=== PATIENT | female | born 1975 | race Caucasian/White ===

== ENCOUNTER 2018-06-14 11:00 | Inpatient (IN) | payer OTHER ==
[2018-06-26 12:32] VITALS: BMI 29.4
--- NOTE | 2018-06-26 20:17 | HP ---
DATE OF ADMISSION: 06/27/2018 REASON FOR ADMISSION: Menorrhagia, dysmenorrhea, fibroids. SCHEDULED PROCEDURE: Total laparoscopic hysterectomy and bilateral salpingectomy. HISTORY OF PRESENT ILLNESS: Ms. Sinclair is a 42-year-old 5, para 4, AB 1 with a long history of known fibroids that have increased in size and her menorrhagia is worse and she desires definitiv e therapy. OB AND UTILITY PLANT OPERATIVE HISTORY: Noted , negative EMB, negative Pap. PAST MEDICAL HISTORY: Anxiety. PAST SURGICAL HISTORY: None. ALLERGIES: Denies. MEDICATION: Provera. SOCIAL HISTORY: Denies tobacco, alcohol, IV drug abuse. FAMILY HISTORY: Noncontributory. REVIEW OF SYSTEMS: Noncontributory. PHYSICAL EXAMINATION: GENERAL: White female. VITAL SIGNS: 5 feet and 10 inches, 205, BMI 29, blood pressure 104/78. HEENT: Within normal limits. LUNGS: Clear to auscultation bilaterally. HEART: Regular rhythm. BREASTS: No masses bilaterally. ABDOMEN: Soft. No jugular rebound or guarding. PELVIC: Vulva without lesions. Vagina without discharge. Cervix parous, uterus anteverted 12-14-we ek size irregular, consistent with fibroids. No adnexal masses noted. EXTREMITIES: Without clubbing, cyanosis or edema. LABORATORY DATA: Pap and EMB was benign, without evidence of hyperplasia or atypia. IMPRESSION: Fibroids, dysmenorrhea, menorrhagia. PLAN: We will proceed with TLH, bilateral salpingectomy. Patient understands the risk and benefits of procedure. We will administer appropriate antibiotic and DVT prophylaxis.
[2018-06-27] MEDS ORDERED: Gabapentin 300 MG CAP ONE (09:10)
[2018-06-27] MEDS ORDERED: CEFAZOLIN/Water 2 GM/20 ML SYRINGE ONE (09:10)
[2018-06-27] MEDS ORDERED: CeleCOXIB 100 MG CAP ONE (09:10)
[2018-06-27] MEDS ORDERED: Famotidine/PF 20 mg/2ml Vial ONE (09:10)
[2018-06-27] MEDS ORDERED: Bupivacaine HCl 0.5%/Epinephrine 1:200,000/PF 30 ml Vial ONE (09:41)
[2018-06-27] MEDS ORDERED: Fentanyl 100 MCG/2 ML VIAL ONE ×3 (09:49→13:16)
[2018-06-27 09:54] LABS: Hemoglobin 11.8 g/dL (12.0-16.0); Mean Corpuscular HGB CONC 32.2 g/dL (32.0-36.0); Mean Corpuscular Hemoglobin 26.6 pg (27.0-31.0); Mean Corpuscular Volume 82.7 fL (78.0-98.0); Mean Platelet Volume 7.4 fL (7.4-10.4); Platelet Count 300 thou/uL (130-400); RBC Distribution Width 12.6 % (11.5-14.5); Red Blood Cell (RBC) Count 4.44 mill/uL (4.20-5.40); White Blood Cell (WBC) Count 6.2 thou/uL (4.8-10.8)
[2018-06-27] MEDS ORDERED: Midazolam HCl 2 mg/2 ml Vial ONE (09:58)
[2018-06-27] MEDS ORDERED: Promethazine HCl 25 MG/ML VIAL IM PRN ×2 (12:19→13:56)
[2018-06-27] MEDS ORDERED: Promethazine HCl 25 MG/ML VIAL SLOW IVP PRN (12:19)
[2018-06-27] MEDS ORDERED: Ondansetron HCl/PF 4 MG/2 ML Vial IVP PRN ×2 (12:19→13:56)
[2018-06-27] MEDS ORDERED: Estradiol 0.1mg/24 Hour Patch (Weekly) TD ONE (12:31)
--- NOTE | 2018-06-27 13:07 | OP ---
DATE OF PROCEDURE: 06/27/2018 PREOPERATIVE DIAGNOSES: Large uterus consistent with leiomyoma uteri with menorrhagia and pelvic yennifer n. POSTOPERATIVE DIAGNOSES: Approximately 16-18 week size uterus with leiomyoma uteri and probable sylvie omyosis. The patient desired prophylactic oophorectomy. PROCEDURE: Total laparoscopic hysterectomy and bilateral salpingo-oophorectomy. SURGEON: Jc Waldron M.D. PATTERN CARRIER: Rebecca Polanco D.O. ANESTHESIA: General endotracheal. ESTIMATED BLOOD LOSS: Approximately 100 mL DRAINS: Laboy to gravity. MEDICATIONS: Ancef preincision. DVT PROPHYLAXIS: SCDs. OPERATIVE FINDINGS: 1. Approximately 16-18 week size uterus consistent with fibroids and adenomyosis. 2. Normal appearing tubes and ovaries bilaterally. 3. Hemostasis, clear urine, counts correct at the end of the procedure. DISPOSITION: Recovery room in good condition. DESCRIPTION OF OPERATIVE PROCEDURE: The patient was taken to the operating room and underwent genera l anesthesia without difficulty, was prepped and draped in dorsal lithotomy. Sliding speculum placed in the vagina after placing a Laboy catheter draining 100 mL of clear urine. Cervix identified, gra sped with single tooth tenaculum. Uterus sounded to 16 cm. A 4 cm vaginal internet sales consultant and an 8 cm ob turator was placed. Speculum and tenaculum removed and the truck crane operator changed his gloves and turned hi s attention to the abdominal portion of procedure. Ten mL of lidocaine with epinephrine was injected approximately 2 cm above the umbilicus. A 3.5 cm vertical midline skin incision was made at this le miguelangel and carried down to the fascia. Freeze needle placed inside abdominal cavity. Confirmation of e ntry into the peritoneal cavity. Insufflation carried out with carbon dioxide to a max pressure of 1 5, volume approximately 3.5 liters. A 12 mm trocar was introduced and confirmation entry into the pe ritoneal cavity without trauma to underlying viscera was noted. The patient was placed in Trendelenb urg position. Right and left lateral trocars for the da Power were placed lateral to the gastric ves sels and as well as an auction assistant port 11 mm in the right upper quadrant cut down for the GelPOINT and small Toby O was carried down on the 12 mm trocar in the midline and enlarging the fascial defect approximately 3 cm. Small Toby O was placed in this and pulled tensely against the skin. The spec imen retrieval bag was placed in the patient's left upper quadrant and the GelPOINT applied to the sm all Toby 0. Da Power robot was then docked with placing a monopolar scissors in the right hand and bipolar fenestrated forceps and the left. Ureters were easily identified bilaterally and noted to b e well lateral to the cervix. The IP was coagulated and transected on the patient's left through the broad, the round, and down to the level of the internal cervical os. Vesicouterine peritoneal fold was incised sharply anteriorly and dissected the bladder off the lower cervix and upper vagina. Skel etonization of the uterine vessels was carried out and these were coagulated on the patient's left. Attention was turned to the right where the identical procedure was carried out. Posteriorly, the la rge uterine fundus was elevated and the cul-de-sac was entered at 6 o'clock and extended from 6 to 8 and from 6 to 4. Anteriorly, the vagina was entered at 12 o'clock and was extended from 12 to 2 and from 12 to 10. Bipolar fenestrated forceps was used to coagulate the corners on each side and these were transected amputating the specimen. Because the large size the specimen could be drawn into the vagina for retrieval, and so the CANDY manipulator was left in the vagina to maintain pneumoperitoneu m. The uterus was removed from the CANDY manipulator and placed in the upper abdomen for retrieval. Suction irrigation was carried out and the vaginal cuff was closed using a running continuous 0 PDS s uture lock suture in a 2-layer technique. The ureters were well identified, noted to be lateral and the bladder was filled with saline and delineated noted to be without injury and not involving the cu ff closure. Good hemostasis was noted after cuff closure and to seal was applied across all the raw surfaces of transection to assure hemostasis. The specimen retrieval bag was then pulled into the pe lvis opened and the uterine specimen placed into it. The da Power instruments were then removed and the robot undocked and the patient placed level. The specimen retrieval bag was pulled out through t he small Toby O retractor and the uterine specimen grasped. It was morcellated out and extracorpor eal manner inside the sac in a piecemeal manner. No evidence of compromise of the sac was noted and care was taken to avoid trauma to the underlying viscera. Once the entire specimen was removed, the Toby O was removed. The fascia grasped with 2 Allis clamps and closed that level with an 0 Vicryl suture in a running continuous manner. The trocars and the Toby O incision was then closed using a subcuticular 4-0 Monocryl x4 as well as Dermabond. Vagina was inspected and noted to be dry. The p atient was awakened, extubated, and taken to the recovery room in good condition.
[2018-06-27] MEDS ORDERED: Simethicone Chewable 80 MG TAB PO PRN (13:56)
[2018-06-27] MEDS ORDERED: diphenhydrAMINE 25 MG CAP PO PRN (13:56)
[2018-06-27] MEDS ORDERED: Morphine 4 MG/ML VIAL SLOW IVP PRN (13:56)
[2018-06-27] MEDS ORDERED: Estradiol 0.1mg/24 Hour Patch (Weekly) TD SCH (13:56)
[2018-06-27] MEDS ORDERED: Zolpidem Tartrate 5 MG TAB PO PRN (13:56)
[2018-06-27] MEDS ORDERED: HYDROcodone/Acetaminophen 10/325 mg Tablet PO PRN (13:56)
[2018-06-27] MEDS ORDERED: PROPOFOL 200 MG/20 ML VIAL ONE (15:16)
[2018-06-27] MEDS ORDERED: Ondansetron HCl/PF 4 MG/2 ML Vial ONE (15:16)
[2018-06-27] MEDS ORDERED: PHENYLEPHRINE-NS 100 MCG/ML 10 ML SYRINGE ONE (15:16)
[2018-06-27] MEDS ORDERED: ePHEDrine/0.9% NaCl/PF SYRINGE 50 mg/10 ml ONE (15:16)
[2018-06-27] MEDS ORDERED: Dexamethasone 20 MG/5 ML VIAL ONE (15:16)
[2018-06-27] MEDS ORDERED: Glycopyrrolate 0.2 MG/ML 5 ML SYRINGE ONE (15:16)
[2018-06-27] MEDS ORDERED: Lidocaine 1% PF 5 ML VIAL ONE (15:16)
[2018-06-27] MEDS: Sodium Chloride 0.9% 1,000 ML IV SCH ×2 (19:56→21:30)
[2018-06-27] MEDS: CeleCOXIB 100 MG CAP PO SCH (21:24)
[2018-06-27] MEDS: Gabapentin 300 MG CAP PO SCH (21:26)
[2018-06-27] MEDS: HYDROcodone/Acetaminophen 10/325 mg Tablet PO PRN (21:50)
--- NOTE | 2018-06-27 21:55 | PDOC.EVN ---
Event Note - Event Note Event Note: OBGYN ON-Call: @[phone]: Just spoke with the patient's nurse. Patient s/p Total lap hyst and BSO earlier today per Dr garcia with inability to void. Bladder scan per protocol with close to 800cc urine retained. I have ordered sales overnight. I will notify Dr garcia. Afebrile.
[2018-06-28] MEDS: Sodium Chloride 0.9% 1,000 ML IV SCH ×2 (03:06→05:57)
[2018-06-28] MEDS: HYDROcodone/Acetaminophen 10/325 mg Tablet PO PRN (05:51)
[2018-06-28 06:03] LABS: Hemoglobin 10.5 g/dL (12.0-16.0); Mean Corpuscular HGB CONC 31.7 g/dL (32.0-36.0); Mean Corpuscular Hemoglobin 26.7 pg (27.0-31.0); Mean Corpuscular Volume 84.2 fL (78.0-98.0); Mean Platelet Volume 7.5 fL (7.4-10.4); Platelet Count 239 thou/uL (130-400); RBC Distribution Width 12.7 % (11.5-14.5); Red Blood Cell (RBC) Count 3.93 mill/uL (4.20-5.40)
--- NOTE | 2018-06-28 07:00 | DIS ---
DATE OF ADMISSION: 06/27/2018 DATE OF DISCHARGE: 06/28/2018 SUMMARY OF HOSPITAL COURSE: Ms. Sinclair was admitted and underwent a TLH with BSO for fibroids and m enorrhagia and prophylactic oophorectomy on the . She had an uncomplicated surgical course. In the postoperative period, the patient had her Laboy catheter removed and had urinary retention. It w as replaced on the evening of the with 800 mL of clear urine obtained. Postoperative day #1, he matocrit went from 37%-33%. Vital signs were stable with greater than 2 liters urine production post operatively. Exam revealed clear lungs. Abdomen is soft, nontender with bowel sounds in all 4 quadrants. Her incisions were intact and expec dakota tenderness postoperatively. Her perineum was dry. Extremities without clubbing, cyanosis, or ed sugey. Laboy catheter to be discontinued at approximately 0700 today. We will start the patient on bethanec hol just as inpatient and anticipate ability to void to be resolved. If so, patient will be discharg ed home. DISCHARGE MEDICATIONS: Include Estradiol 0.1 mg p.o. daily, and [place] which was sent out preoperativ roland. DISCHARGE FOLLOWUP: She will be followed up at [facility] [place] in 4 weeks. Pathology w ill be followed up when available from [facility] pathology.
[2018-06-28] MEDS: Gabapentin 300 MG CAP PO SCH (08:37)
[2018-06-28] MEDS: CeleCOXIB 100 MG CAP PO SCH (08:37)
[2018-06-28] MEDS ORDERED: Escitalopram Oxalate 20 mg Tablet PO SCH (09:00)
[2018-06-28] MEDS ORDERED: Lisdexamfetamine Dimesylate [Vyvanse] 50 MG PO SCH (09:00)
[2018-06-28 12:03] VITALS: BP 102/75; TEMP 98.3
--- NOTE | 2018-06-28 12:41 | PDOC.EVN ---
Event Note - Event Note Event Note: doing well. voiding with ease. dc home
== END 2018-06-28 13:12 | disposition home or self-care (01) | DRG 743 ==
LOC: SURG A 06-27 08:47 → INTOOBSV 06-27 08:47 → OBSVTOIN 06-27 08:47 → SJJU 06-27 13:43
PROVIDERS: ADMIT Obstetrics & Gynecology; ATTEND Obstetrics & Gynecology
PROC: 0UT94ZZ Resection of Uterus, Percutaneous Endoscopic Approach (ICD-10-PCS; principal; 2018-06-27)
PROC: 0UT74ZZ Resection of Bilateral Fallopian Tubes, Percutaneous Endoscopic Approach (ICD-10-PCS; 2018-06-27)
PROC: 0UT24ZZ Resection of Bilateral Ovaries, Percutaneous Endoscopic Approach (ICD-10-PCS; 2018-06-27)
PROC: 8E0W4CZ Robotic Assisted Procedure of Trunk Region, Percutaneous Endoscopic Approach (ICD-10-PCS; 2018-06-27)
DX: D25.1 Intramural leiomyoma of uterus (principal); N92.0 Excessive and frequent menstruation with regular cycle; F41.9 Anxiety disorder, unspecified
CPT/HCPCS: 36415; 85027; 86850; 86900; 86901; 88307; 96374; J0131; J0670; J1100; J2001; J2250; J2405; J2704; J3010; S0028